=== PATIENT | male | born 1965 | race African-American/Black ===

== ENCOUNTER 2017-09-27 09:08 | Emergency (ER) | payer OTHER | END 2017-09-27 15:32 | disposition home or self-care (01) | LOC: E/R 09:08 | DX: S00.81XA Abrasion of other part of head, initial encounter (principal); F17.210 Nicotine dependence, cigarettes, uncomplicated; Y08.89XA Assault by other specified means, initial encounter | CPT/HCPCS: 71045; 99283-25 ==

== ENCOUNTER 2017-10-03 23:23 | Emergency (ER) | payer OTHER ==
[2017-10-04 01:33] LABS: WHITE BLOOD COUNT 8.4 10^3/ul (4.8-10.8)
[2017-10-04 01:33] LABS: HEMATOCRIT 32.6 % (42.0-52.0); HEMOGLOBIN 10.7 g/dl (14.0-18.0); MEAN CORPUSCULAR HEMOGLOBIN 28.1 pg (29.0-33.0); MEAN CORPUSCULAR HGB CONC 32.8 g/dl (32.0-37.0); MEAN CORPUSCULAR VOLUME 85.6 fl (82.0-101.0); MEAN PLATELET VOLUME 10.1 fl (7.4-10.4); PLATELET COUNT 258 10^3/UL (140-415); POSITIVE DIFF @See below; RED BLOOD COUNT 3.81 10^6/ul (4.70-6.10); RED CELL DISTRIBUTION WIDTH 16.8 % (11.5-14.5)
[2017-10-04 01:35] LABS: ADD MAN DIFF? YES
[2017-10-04 02:07] LABS: ANISOCYTOSIS 1+ (0-0); BASOPHIL #M 0.1 10^3/ul (0.0-0.0); BASOPHILS % (M) 2 % (0-2); EOSINOPHILS % (M) 2 % (0-7); LYMPHOCYTES #M 2.7 10^3/ul (0.8-2.9); LYMPHOCYTES % (M) 33 % (15-51); MICROCYTOSIS 1+ (0-0); MONOCYTE #M 0.3 10^3/ul (0.3-0.9); MONOCYTES % (M) 4 % (0-11); PLATELET ESTIMATE NORMAL; POLYCHROMASIA 3+ (0-0); REACTIVE LYMPHOCYTES #M 0.1 10^3/ul (0.0-0.0); REACTIVE LYMPHOCYTES% (M) 2 % (0-0); SEGMENTED NEUTROPHILS (M) % 57 % (39-77); SMUDGE%M 5 % (0-0)
[2017-10-04 02:20] LABS: ANION GAP 15 (8-16); BLOOD UREA NITROGEN 15 mg/dl (7-20); CALCIUM 9.3 mg/dl (8.4-10.2); CARBON DIOXIDE 25 mmol/L (21-31); CHLORIDE 107 mmol/L (97-110); CREATININE 0.68 mg/dl (0.61-1.24); GLUCOSE 86 mg/dl (70-220); POTASSIUM 3.9 mmol/L (3.5-5.1); SODIUM 143 mmol/L (135-144)
[2017-10-04 02:22] LABS: ETHANOL < 10.0 mg/dl
[2017-10-04 02:32] LABS: TROPONIN-I < 0.012 ng/ml (0.00-0.12)
== END 2017-10-04 05:12 | disposition short-term general hospital (02) ==
LOC: E/R 23:23
DX: D64.9 Anemia, unspecified (principal); R07.89 Other chest pain; F17.210 Nicotine dependence, cigarettes, uncomplicated; R40.2132 Coma scale, eyes open, to sound, at arrival to emergency department; R40.2242 Coma scale, best verbal response, confused conversation, at arrival to emergency department; R40.2362 Coma scale, best motor response, obeys commands, at arrival to emergency department
CPT/HCPCS: 36415; 71045; 80048; 80306; 84484; 85025; 99285-25

== ENCOUNTER 2019-03-15 21:05 | Emergency (ER) | payer OTHER, MEDICAID ==
[2019-03-15] MEDS: HYDROCODONE/APAP (10/325) TAB PO (22:25)
[2019-03-16] MEDS: HYDROCODONE/APAP (10/325) TAB PO (10:19)
== END 2019-03-16 18:18 | disposition home or self-care (01) ==
LOC: E/R 21:05
DX: M54.5 Low back pain (principal); F17.210 Nicotine dependence, cigarettes, uncomplicated
CPT/HCPCS: 99283; Z7502